=== PATIENT | male | born 1940 | race Caucasian/White ===

== ENCOUNTER 2016-08-22 11:22 | Inpatient (IN) | payer MEDICARE, OTHER ==
[~2016-08-22] VITALS: Ht 182.9 cm; Wt 105.0 kg
--- NOTE | ~2016-08-22 | HEMODYNAMI ---
PATIENT:FARZANA DAVIS MEDICAL RECORD: [id number] : 36 LOCATION[facility] [id number] ADMISSION DATE: 08/23/16 Generatedon:08/24/20169:03 Patient name: FARZANA DAVIS Patient #: [id number] : 1940 Date of study: 08/24/2016 Page: Of Hemodynamic Procedure Report Patient Data Patient Demographics Procedure consent was obtained First Name: FARZANA Gender: Male Last Name: RYAN : 1940 Middle Initial: OTONIEL Age: 76 year(s) Patient #: [id number] Race: SSN: [id number] Additional ID: [id number] Contact details [address]: [address] [place] [address] State: [place] City: [place] Zip code: [address] Past Medical History Allergies: No known allergies Admission Admission Data Admission Date: 08/23/2016 Admission Time: 17:02 Arrival Date: 08/23/2016 Arrival Time: 17:02 Admit Source: Emergency Insurance Payor: Medicare, [facility] Room #: D.2122 Height (in.): 71.65 BSA: 2.46 (m2) Height (cm.): 182 BMI: 38.64 (kg/m2) Weight (lbs.): 282.19 Weight (kg.): 128 Medications upon Admission Medications Dosage Times Administered Last Remarks per Delivery Day Date and Time Clopidogrel Yes 08/22/2016 0:00 Lab Results Lab Result Date: 08/24/2016 Lab Result Time: 0:00 Biochemistry Name Units Result Min Max BUN mg/dl 26 --(----)-* 7 18 Creatinine mg/dl 1.6 --(----)-* 0.6 1.3 CBC Name Units Result Min Max Hemoglobin g/dl 13.1 -*(----)-- 13.5 17.5 Procedure Procedure Types Cath Procedure Diagnostic Procedure FFR/IVUS Intra-Coronary IVUS Initial PCI Procedure Coronary Stent Initial Miscellaneous Procedures Moderate Sedation up to 15 minutes Procedure Description Procedure Date Procedure Date: 08/24/2016 Procedure Start Time: 8:49 Procedure End Time: 9:00 Procedure Staff Name Function New Faustin MD Performing Physician Khanh Cleveland RT Scrub Cooper Lieberman RN Nurse Li Dave RT Monitor Procedure Data Cath Procedure Fluoroscopy Diagnostic fluoroscopy Total fluoroscopy Time: 2.5 time: 2.5 min min Diagnostic fluoroscopy Total fluoroscopy dose: 184 dose: 184 mGy mGy Contrast Material Contrast Material Type Amount (ml) Isovue 370 42 Entry Location Entry Primary Successful Side Size Upsize Upsize Entry Closure Succes sful Closure Location (Fr) 1 (Fr) 2 (Fr) Remarks Device Remarks Femoral Right 6 Fr Vascade artery Short Closure System Estimated blood loss: 5 ml Procedure Complications No complications Procedure Medications Medication Administration Route Dosage Oxygen NC 2 l/min Lidocaine 2% added to field 20 Heparin Flush Bag added to field 2 bags (1000units/500ml NS) 0.9% NaCl I.V. 100 ml/hr Versed I.V. 1 mg Fentanyl I.V. 50 mcg Heparin Bolus I.V. 4000 units Versed I.V. 1 mg Fentanyl I.V. 50 mcg Hemodynamics Rest BSA: 2.46 (m2) HGB: 13.1 (g/dl) O2 Consumption: Estimated: 281.76 (ml/min) O2 Co nsumption indexed: Estimated:114.54 (ml/min/m) Heart Rate: 70 (bpm) Snapshots Pre Cath Intra NCS Post Cath Vital Signs Time Heart Resp SPO2 etCO2 [id number] NIBP (mmHg) Rhythm Pain Sedation Rate (ipm) (%) (mmHg) (mmHg) Status Level (bpm) 8:31:14 64 18 99 0 0 155/75(122) NSR 0 (11) 10(A) , No pain 8:35:36 64 21 100 0 0 148/75(127) NSR 0 (11) 10(A) , No pain 8:39:54 62 16 98 0 0 135/69(106) NSR 0 (11) 10(A) , No pain 8:44:14 61 26 98 0 0 132/65(103) NSR 0 (11) 10(A) , No pain 8:48:34 62 21 99 0 0 132/63(97) NSR 0 (11) 9(A) , No pain 8:52:52 62 21 98 0 0 122/56(100) NSR 0 (11) 9(A) , No pain 8:57:10 65 16 98 0 0 130/65(88) NSR 0 (11) 10(A) , No pain Medications Time Medication Route Dose Verified Delivered Reason Notes Effectiveness by by 8:31:47 Oxygen NC 2 New [place] used for l/min Roxie Lieberman RN procedure 8:31:55 Lidocaine 2% added 20ml New New for local to vial Roxie Faustin MD anesthetic field 8:32:03 Heparin Flush added 2 New New used for Bag to bags Roxie Faustin MD procedure (1000units/500ml field NS) 8:32:12 0.9% NaCl I.V. 100 New [place] Per physician ml/hr Roxie Lieberman RN 8:47:40 Versed I.V. 1 mg New [place] for sedation Roxie Lieberman RN 8:47:47 Fentanyl I.V. 50 New [place] for sedation mcg Roxie Lieberman RN 8:51:26 Heparin Bolus I.V. 4000 New [place] for verifie d units Roxie Lieberman RN anticoagulation with dr faustin 8:53:52 Versed I.V. 1 mg New [place] for sedation Roxie Lieberman RN 8:53:58 Fentanyl I.V. 50 [place] for sedation mcg Roxie Lieberman RN Procedure Log Time Note 8:10:10 Cooper Lieberman RN sent for patient. Start room use. 8:19:45 Patient Height : 71.65 inches 8:19:45 Patient Weight : 282.19 lbs 8:19:49 Diagnostic Cath Status : Elective 8:20:17 Time tracking: Regular hours 8:20:32 Plan of Care:Hemodynamics will remain stable., Cardiac rhythm will remain stable., Comfort level will be maintained., Respiratory function will remain adequate., Patient/ family verbilizes understanding of procedure., Procedure tolerated without complication., Recovers from procedure without complications.. 8:24:35 Patient received from Med II to [facility] 1 Alert and oriented. Tansferred to table in Supine position. 8:24:36 Warm blankets applied, and corry hugger turned on for patient comfort. 8:24:38 Correct patient and procedure confirmed by team. 8:24:47 Signed procedure consent form obtained from patient. 8:24:49 ECG and BP/O2 sat monitors applied to patient. 8:26:59 H&P Date Dictated: 08/23/2016 Within 30 days and on chart.. 8:27:02 Pre-procedure instructions explained to patient. 8:27:04 Family in waiting room. 8:27:06 Patient NPO since Midnight. 8:27:23 Patient allergic to No known allergies 8:27:29 Is patient on blood thinner?Yes 8:27:33 ACC The patient was administered the following blood thiners within the last 24 hours: ACCPlavix 8:27:35 Patient diabetic? Yes. 8:27:37 If diabetic: On Metformin? No 8:27:40 Snore? Yes 8:27:45 Sleep apnea? Yes 8:27:46 Deviated septum? No 8:27:47 Opens mouth fully? Yes 8:27:48 Sticks out tongue? Yes 8:27:59 Patient pain scale 0/10 ?. 8:28:11 IV patent on arrival in right forearm with 0.9% NaCl at [facility]. 8:28:36 Lab results completed and on chart. 8:28:44 Right groin area was prepped with chlora-prep and draped in sterile fashion 8:28:48 Alarms reviewed by R. N. 8:28:49 Sharps counted by scrub and verified by R.N. 8:29:58 Vital chart was started 8:30:28 Baseline sample Acquired. 8:30:34 Rhythm: paced 8:30:36 Full Disclosure recording started 8:31:47 Oxygen 2 l/min NC was given by Cooper Lieberman RN; used for procedure; 8:31:55 Lidocaine 2% 20ml vial added to field was given by New Faustin MD; for local anesthetic; 8:32:03 Heparin Flush Bag (1000units/500ml NS) 2 bags added to field was given by New Faustin MD; used for procedure; 8:32:12 0.9% NaCl 100 ml/hr I.V. was given by Cooper Lieberman RN; Per physician; 8:34:32 Arrival Date: 08/23/2016 5:02:00 PM 8:45:45 Lab Result : Creatinine 1.6 mg/dl 8:45:45 Lab Result : BUN 26 mg/dl 8:45:45 Lab Result : Hemoglobin 13.1 g/dl 8:45:50 Physician paged 8:46:03 Zero performed for pressure channel P1 8:46:41 Physician arrived 8:46:41 --------ALL STOP TIME OUT------ 8:46:41 Final Timeout: patient, procedure, and site verified with staff and physician. All members of the team are in agreement. 8:46:43 Right groin site verified by team. 8:46:46 Physical assessment completed. ASA score P 2 - A patient with mild systemic disease as per New Faustin MD. 8:46:49 Sedation plan: IV Moderate Sedation Versed, Fentanyl 8:47:05 Use device set Femoral PCI 8:47:06 Acist Syringe opened to sterile field. 8:47:07 Acist Hand Control opened to sterile field. 8:47:08 Bag Decanter opened to sterile field. 8:47:09 Cardinal Cath Pack opened to sterile field. 8:47:10 Terumo 6Fr Moody Sheath opened to sterile field. 8:47:11 St Flash 260cm J .035 wire opened to sterile field. 8:47:12 Merit BasixCompak Inflation Kit opened to sterile field. 8:47:12 Acist Manifold opened to sterile field. 8:47:13 Tegaderm 4 x 4 opened to sterile field. 8:47:28 [place] Stanford Eagleye IVUS Catheter opened to sterile field. 8:47:28 Russell Whisper J 300cm 0.014 guide wire opened to sterile field. 8:47:34 Medtronic Launcher 6Fr AR 2.0 guide catheter opened to sterile field. 8:47:40 Versed 1 mg I.V. was given by Cooper Lieberman RN; for sedation; 8:47:47 Fentanyl 50 mcg I.V. was given by Cooper Lieberman RN; for sedation; 8:49:37 Procedure started. 8:49:44 Local anesthetic to right femoral artery with Lidocaine 2% by New Faustin MD.INITIAL ACCESS ONLY 8:49:53 A 6 Fr Short sheath was inserted into the Right Femoral artery 8:50:00 6 Fr ar 2 guide catheter was inserted over the wire 8:50:08 whisper wire advanced. 8:50:11 Wire advanced across lesion. 8:51:26 Heparin Bolus 4000 units I.V. was given by Cooper Lieberman RN; for anticoagulation; verified with dr faustin 8:53:52 Versed 1 mg I.V. was given by Cooper Lieberman RN; for sedation; 8:53:58 Fentanyl 50 mcg I.V. was given by Cooper Lieberman RN; for sedation; 8:54:11 IVUS catheter advanced over wire. 8:54:12 IVUS pass to RCA lesion performed. 8:54:13 IVUS catheter removed over wire. 8:55:26 Inflation Number: 1 A Medtronic Resolute 3.5 X 30 stent was prepped and advanced across the Mid RCA. The stent was deployed at 17 JOHN for 0:10 (min:sec). 8:55:58 Stent catheter was removed intact over wire. 8:56:00 Wire removed. 8:56:04 Guide catheter removed. 8:56:23 Vascade 6/7 Fr Closure Device opened to sterile field. 8:57:43 Sheath removed intact; hemostasis achieved with Vascade Closure System to the Right Femoral artery. 8:57:45 Procedure ended.(Physican Out) 8:59:06 Fluoroscopy time 02.50 minutes. 8:59:10 Flurop Dose total: 184 8:59:10 Fluoroscopy dose: 184 mGy 8:59:13 Contrast amount:Isovue 370 42ml. 8:59:15 Sharps counted by scrub and verified by R.N. 8:59:16 Insertion/operative site no bleeding no hematoma. 8:59:19 Post-op/insertion site Right Femoral artery dressed using a 4 x 4 and Tegaderm. 8:59:21 Post right femoral artery:stable 8:59:23 Post Procedure Pulses reassessed and unchanged 8:59:26 Post procedure rhythm: unchanged. 8:59:29 Estimated blood loss: 5 ml 8:59:30 Post procedure instruction explained to patient.Patient verbalizes understanding. 8:59:31 Patient needs reinforcement of post procedure teaching. 8:59:44 Procedure type changed to Cath procedure, Diagnostic procedure, FFR/IVUS, Intra-Coronary IVUS Initial, PCI procedure, Coronary Stent Initial, Miscellaneous Procedures, Moderate Sedation up to 15 minutes 8:59:45 Procedure and supply charges have been captured, reviewed, submitted and are correct. 8:59:49 Procedure Complication : No complications 8:59:51 Vital chart was stopped 8:59:52 See physician's report for complete and final results. 8:59:54 Report given to [facility]. 9:00:18 Patient transfered to [facility] with Stretcher. 9:00:20 Procedure ended. 9:00:20 Full Disclosure recording stopped 9:00:29 ACC-PCI Only Patient was given prescriptions, or instructed by New Faustin MD to start/continue the following medications upon discharge: Plavix 9:00:30 End room use (Document Last) Intervention Summary Intervention Notes Time ActionType Lesion and Equipment Action# Pressure Duration Attributes Used 8:55:26 Place stent Mid RCA Medtronic 1 17 00:10 Resolute 3.5 X 30 stent Device Usage Item Name Manufacture Quantity Catalog Hospital Part Current Minima l Lot# / Number Charge Number Stock Stock Serial# Code Acist Acist 1 89830 118903 249406 190530 20 Syringe Medical Systems Inc Acist Hand Acist 1 71624 454090 546504 757145 5 Control Medical Systems Inc Bag Microtek 1 2002S 396974 04977 888924 5 Jaco Solarsi [employer] Cardinal Cardinal [address] 589601 83985 543899 5 TimePad Terumo 6Fr Terumo 1 [id number] 725777 272688 322003 [address] Flash 1 [id number] 777294 074836 015240 30 260cm J .035 wire Merit Merit 1 [id number] 131315 555541 293445 15 BasixFarmolprk Medical Inflation Kit Acist Acist 1 03697 935785 225103 234070 5 [employer]ent [employer] Inc Tegaderm 4 3M 1 1626W 236092 034854 301259 5 x 4 [place] 1 [id number] 715967 301756 810282 8 Stanford Eagleye IVUS Catheter Russell Russell 1 [id number] 917496 167417 316997 5 Whisper J Vascular 300cm 0.014 guide wire Medtronic Medtronic 1 [id number] 931843 31718 023121 1 Launcher 6Fr AR 2.0 guide catheter Medtronic Medtronic 1 [id number] 787724 310746 6 [id number] Resolute 3.5 X 30 stentt Vascade 12/21 Cardiva 1 [id number] 961005 150614 305265 5 Fr Closure Medical, Device Inc. Signature Audit [place] Stage Time Signature Unsigned Intra-Procedure 08/24/2016 Li Dave 9:03:49 AM RT(R) Signatures Monitor : Li Dave RT Signature : Date : Time : [id number] [place] [address]
--- NOTE | ~2016-08-22 | HEMODYNAMI ---
PATIENT:FARZANA DAVIS MEDICAL RECORD: [id number] : 36 [id number] ADMISSION DATE: 08/23/16 Generatedon:08/25/201611:04 Patient name: FARZANA DAVIS Patient #: [id number] : 1940 Date of study: 08/23/2016 Page: Of Hemodynamic Procedure Report Patient Data Patient Demographics Procedure consent was obtained First Name: FARZANA Gender: Male Last Name: RYAN : 1940 Middle Initial: OTONIEL Age: 76 year(s) Patient #: [id number] Race: SSN: [id number] Additional ID: [id number] Contact details [address]: [address] [place] [address] State: [place] City: [place] Zip code: [address] Past Medical History Allergies: No known allergies Admission Admission Data Admission Date: 08/23/2016 Admission Time: 9:43 Arrival Date: 08/23/2016 Arrival Time: 17:02 Admit Source: Emergency Insurance Payor: Medicare, [facility] Room #: D.2122 Height (in.): 71.65 BSA: 2.46 (m2) Height (cm.): 182 BMI: 38.64 (kg/m2) Weight (lbs.): 282.19 Weight (kg.): 128 Medications upon Admission Medications Dosage Times Administered Last Remarks per Delivery Day Date and Time Clopidogrel Yes 08/22/2016 0:00 Lab Results Lab Result Date: 08/24/2016 Lab Result Time: 0:00 Biochemistry Name Units Result Min Max BUN mg/dl 26 --(----)-* 7 18 Creatinine mg/dl 1.6 --(----)-* 0.6 1.3 CBC Name Units Result Min Max Hemoglobin g/dl 13.1 -*(----)-- 13.5 17.5 Procedure Procedure Types Cath Procedure Diagnostic Procedure LHC LHC w/Coronaries PCI Procedure Coronary Stent Initial Miscellaneous Procedures Moderate Sedation up to 30 minutes Procedure Description Procedure Date Procedure Date: 08/23/2016 Procedure Start Time: 8:05 Procedure End Time: 8:28 Procedure Staff Name Function Jessica Red RT Monitor Vince Jewell RT Culturist Zane Lepe RN Culturist Cooper Lieberman RN Nurse New Faustin MD Performing Physician Khanh Cleveland RT Scrub Procedure Data Cath Procedure Fluoroscopy Diagnostic fluoroscopy Total fluoroscopy Time: 6 time: 6 min min Diagnostic fluoroscopy Total fluoroscopy dose: dose: 1084 mGy 1084 mGy Contrast Material Contrast Material Type Amount (ml) Isovue 300 111 Entry Location Entry Primary Successful Side Size Upsize Upsize Entry Closure Bellamy ccessful Closure Location (Fr) 1 (Fr) 2 (Fr) Remarks Device Remarks Radial Right 6 Fr Mechanical artery Short Compression Estimated blood loss: 10 ml Diagnostic catheters Device Type Used For End Catheter Placement Cordis Infinity 5Fr AR 2 Right Coronary MOD catheter Angiography Terumo 5Fr Arpan 110cm LV Angiography catheter Procedure Complications No complications Procedure Medications Medication Administration Route Dosage Oxygen NC 2 l/min Lidocaine 2% added to field 20 Heparin Flush Bag added to field 2 bags (1000units/500ml NS) 0.9% NaCl I.V. 100 ml/hr Versed I.V. 1 mg Fentanyl I.V. 50 mcg Radial Cocktail I.A. 1 syringe (Verapomil 2mg/Nitro 400mcg/Heparin 1500units) Heparin Bolus I.V. 4000 units Versed I.V. 1 mg Fentanyl I.V. 50 mcg Plavix P.O. 75 mg Hemodynamics Rest BSA: 2.46 (m2) HGB: 13.1 (g/dl) O2 Consumption: Estimated: 272.71 (ml/min) O2 Co nsumption indexed: Estimated:110.86 (ml/min/m) Heart Rate: 60 (bpm) Snapshots Pre Cath Intra NCS Post Cath Vital Signs Time Heart Resp SPO2 NIBP Rhythm Pain Sedation Rate (ipm) (%) (mmHg) Status Level (bpm) 7:59:09 63 16 95 123/60(92) NSR 0 (11) 10(A) , No pain 8:03:30 63 16 97 120/56(91) NSR 0 (11) 10(A) , No pain 8:07:50 64 15 96 118/54(92) NSR 0 (11) 9(A) , No pain 8:12:08 65 15 96 97/52(80) NSR 0 (11) 9(A) , No pain 8:16:18 66 16 95 115/56(85) NSR 0 (11) 9(A) , No pain 8:20:36 68 18 94 101/54(75) NSR 0 (11) 9(A) , No pain 8:24:44 70 17 94 102/56(82) NSR 0 (11) 10(A) , No pain Medications Time Medication Route Dose Verified Delivered Reason Notes Effectiveness by by 7:55:49 Oxygen NC 2 l/min New Buffie used for Roxie Lieberman RN procedure 7:55:59 Lidocaine 2% added 20ml New New for local to vial Roxie Faustin MD anesthetic field 7:56:05 Heparin Flush added 2 bags New Wolff used for Bag to Roxie Faustin MD procedure (1000units/500ml field NS) 7:56:20 0.9% NaCl I.V. 100 Newveto [place] Per ml/hr Roxie Lieberman RN physician 8:06:28 Versed I.V. 1 mg New [place] for sedation Roxie Lieberman RN 8:06:34 Fentanyl I.V. 50 mcg New [place] for sedation Roxie Lieberman RN 8:07:45 Radial Cocktail I.A. 1 Newveto Wolff for (Verapomil syringe Roxie Faustin MD vasodilation 2mg/Nitro 400mcg/Hepari 8:14:36 Heparin Bolus I.V. 4000 New [place] used for verified units Roxie Lieberman RN procedure with dr faustin 8:16:44 Versed I.V. 1 mg New [place] for sedation Roxie Lieberman RN 8:16:48 Fentanyl I.V. 50 mcg New [place] for sedation Roxie Lieberman RN 8:28:28 Plavix P.O. 75 mg New [place]ie for Roxie Lieberman RN antiplatelet therapy Procedure Log Time Note 7:17:23 Time tracking: Regular hours 7:17:27 Plan of Care:Hemodynamics will remain stable., Cardiac rhythm will remain stable., Comfort level will be maintained., Respiratory function will remain adequate., Patient/ family verbilizes understanding of procedure., Procedure tolerated without complication., Recovers from procedure without complications.. 7:30:21 Zane Lepe RN sent for patient. Start room use. 7:36:37 Lab Result : Troponin l 0.017 ng/ml 7:36:37 Lab Result : Hemoglobin 13.1 g/dl 7:36:37 Lab Result : Creatinine 1.6 mg/dl 7:36:37 Lab Result : CK-MB 1.8 ng/ml 7:37:36 Patient Weight : 282.19 lbs 7:37:40 Patient Height : 71.65 inches 7:37:47 Admit Source: Emergency department 7:37:53 Insurance Payor : Medicare, [facility] 7:38:05 Patient allergic to No known allergies 7:38:29 Patient diabetic? Yes. 7:38:31 If diabetic: On Metformin? No 7:38:35 ACC The patient was administered the following blood thiners within the last 24 hours: ACCPlavix 7:38:42 H&P Date Dictated: 08/22/2016 Within 30 days and on chart.. 7:43:51 Patient received from Med II to CCL 1 Alert and oriented. Tansferred to table in Supine position. 7:55:49 Oxygen 2 l/min NC was given by Cooper Lieberman RN; used for procedure; 7:55:59 Lidocaine 2% 20ml vial added to field was given by New Faustin MD; for local anesthetic; 7:56:05 Heparin Flush Bag (1000units/500ml NS) 2 bags added to field was given by New Faustin MD; used for procedure; 7:56:20 0.9% NaCl 100 ml/hr I.V. was given by Cooper Lieberman RN; Per physician; 7:57:47 Warm blankets applied, and corry hugger turned on for patient comfort. 7:57:48 Correct patient and procedure confirmed by team. 7:57:49 Signed procedure consent form obtained from patient. 7:57:50 ECG and BP/O2 sat monitors applied to patient. 7:57:58 Full Disclosure recording started 7:58:02 Vital chart was started 7:58:10 Rhythm: paced 7:58:14 Pre-op teaching completed and patient verbalized understanding. 7:58:14 Pre-procedure instructions explained to patient. 7:58:15 Family in waiting room. 7:58:18 Patient NPO since Midnight. 7:58:21 Is the patient allergic to Iodine/contrast media? No. 7:58:24 Is patient on blood thinner?Yes 7:58:30 Previous problem with sedation/anesthesia? No ? 7:58:31 Snore? Yes 7:58:33 Sleep apnea? Yes 7:58:34 Deviated septum? No 7:58:42 Opens mouth fully? Yes 7:58:43 Sticks out tongue? Yes 7:58:46 Airway obstruction? No ? 7:58:47 Dentures? No ? 7:58:50 Pre procedure: right dorsailis pedis pulse 2+ Normal; easily identifiable; not easily obliterated 7:58:53 Modified Dani's test Ulnar < 7 seconds 7:58:54 Patient pain scale 0/10 ?. 7:59:03 IV patent on arrival in right forearm with 0.9% NaCl at KVO. 7:59:07 Lab results completed and on chart. 7:59:10 Right Radial & Right Groin area was prepped with chlora-prep and draped in sterile fashion 7:59:11 Alarms reviewed by R. N. 7:59:12 Sharps counted by scrub and verified by R.N. 7:59:31 Acist Syringe opened to sterile field. 7:59:31 Use device set Radial Dx 7:59:32 Bag Decanter opened to sterile field. 7:59:32 Cardinal Cath Pack opened to sterile field. 7:59:33 St Flash 260cm J .035 wire opened to sterile field. 7:59:33 Terumo 6Fr Slender Glidesheath opened to sterile field. 7:59:35 Acist Hand Control opened to sterile field. 7:59:36 Tegaderm 4 x 4 opened to sterile field. 7:59:36 Acist Manifold opened to sterile field. 8:00:35 Physician paged 8:04:02 Final Timeout: patient, procedure, and site verified with staff and physician. All members of the team are in agreement. 8:04:06 Right Radial site verified by team. 8:04:10 Physical assessment completed. ASA score P 2 - A patient with mild systemic disease as per New Faustin MD. 8:04:28 Sedation plan: IV Moderate Sedation Versed, Fentanyl 8:04:42 Baseline sample Acquired. 8:04:47 Procedure started. 8:04:55 Zero performed for pressure channel P1 8:05:40 Local anesthetic to right radial artery with Lidocaine 2% by New Faustin MD.INITIAL ACCESS ONLY 8:06:28 Versed 1 mg I.V. was given by Cooper Lieberman RN; for sedation; 8:06:34 Fentanyl 50 mcg I.V. was given by Cooper Lieberman RN; for sedation; 8:07:45 Radial Cocktail (Verapomil 2mg/Nitro 400mcg/Heparin 1500units) 1 syringe I.A. was given by New Faustin MD; for vasodilation; 8:07:57 A 6 Fr Short sheath was inserted into the Right Radial artery 8:08:47 A [place] 5Fr Arpan 110cm catheter was advanced over the wire and used for LV Angiography. 8:08:54 LV gram done using GOTTI 8:08:58 Injector settings: Ml/sec: 5, Volume: 15, 8:09:11 EF : 45 % 8:10:05 Catheter removed. 8:10:36 A [place] Bluesity 5Fr AR 2 MOD catheter was advanced over the wire and used for Right Coronary Angiography. 8:10:50 Medtronic Launcher 6Fr EBU 3.5 guide catheter opened to sterile field. 8:11:49 Catheter removed. 8:11:58 6 Fr EBU 3.5 guide catheter was inserted over the wire 8:12:03 LCA angiography performed. 8:14:32 Russell Whisper J 300cm 0.014 guide wire opened to sterile field. 8:14:33 Intelligent Data Sensor DevicesixCompak Inflation Kit opened to sterile field. 8:14:36 Heparin Bolus 4000 units I.V. was given by Cooper Lieberman RN; used for procedure; verified with dr faustin 8:16:44 Versed 1 mg I.V. was given by Cooper Lieberman RN; for sedation; 8:16:48 Fentanyl 50 mcg I.V. was given by Cooper Lieberman RN; for sedation; 8:17:26 Whisper wire advanced. 8:17:48 Inflation Number: 1 A Medtronic Resolute 2.5 X 26 stent was prepped and advanced across the Mid LAD. The stent was deployed at 13 JOHN for 0:09 (min:sec). 8:18:20 Inflation number: 2 The stent balloon was then re-inflated across the Mid LAD to 15 JOHN for 0:11 (min:sec). 8:19:02 Inflation number: 3 The stent balloon was then re-inflated across the Mid LAD to 11 JOHN for 0:11 (min:sec). 8:19:22 Stent catheter was removed intact over wire. 8:21:09 Inflation Number: 4 A Medtronic Resolute 2.5 X 22 stent was prepped and advanced across the Mid LAD. The stent was deployed at 13 JOHN for 0:09 (min:sec). 8:21:55 Inflation number: 5 The stent balloon was then re-inflated across the Mid LAD to 7 JOHN for 0:11 (min:sec). 8:22:19 Wire removed. 8:22:19 Stent catheter was removed intact over wire. 8:22:20 Guide catheter removed. 8:22:30 Sheath removed intact; hemostasis achieved with Mechanical Compression to the Right Radial artery. 8:22:33 Procedure ended.(Physican Out) 8:22:43 Fluoroscopy time 06.00 minutes. 8:22:46 Fluoroscopy dose: 1084 mGy 8:22:46 Flurop Dose total: 1084 8:22:51 Contrast amount:Isovue 300 111ml. 8:22:53 Sharps counted by scrub and verified by R.N. 8:23:07 Insertion/operative site no bleeding no hematoma. 8:23:07 TR band inflated with 12cc of air. 8:23:18 Post right radial artery:stable, clean and dry 8:23:20 Post Procedure Pulses reassessed and unchanged 8:23:25 Post-procedure physical assessment completed. ASA score P 2 - A patient with mild systemic disease as per New Faustin MD. 8:23:27 Post procedure rhythm: unchanged. 8:23:30 Estimated blood loss: 10 ml 8:23:32 Patient needs reinforcement of post procedure teaching. 8:23:32 Post procedure instruction explained to patient.Patient verbalizes understanding. 8:23:39 Procedure type changed to Cath procedure, Diagnostic procedure, LHC, LHC w/Coronaries, PCI procedure, Coronary Stent Initial, Miscellaneous Procedures, Moderate Sedation up to 30 minutes 8:23:44 Procedure Complication : No complications 8:23:46 See physician's report for complete and final results. 8:23:55 Terumo TR Band Standard opened to sterile field. 8:25:54 Procedure and supply charges have been captured, reviewed, submitted and are correct. 8:27:49 Vital chart was stopped 8:27:51 Report given to PCU. 8:28:08 Patient transfered to PCU with Bed. 8:28:13 Full Disclosure recording stopped 8:28:13 Procedure ended. 8:28:16 End room use (Document Last) 8:28:28 Plavix 75 mg P.O. was given by Cooper Lieberman RN; for antiplatelet therapy; Intervention Summary Intervention Notes Time ActionType Lesion and Equipment Action# Pressure Duration Attributes Used 8:17:48 Place stent Mid LAD Medtronic 1 13 00:09 Resolute 2.5 X 26 stent 8:18:20 Reinflate Mid LAD Medtronic 2 15 00:11 stent Resolute balloon 2.5 X 26 stent 8:19:02 Reinflate Mid LAD Medtronic 3 11 00:12 stent Resolute balloon 2.5 X 26 stent 8:21:09 Place stent Mid LAD Medtronic 4 13 00:09 Resolute 2.5 X 22 stent 8:21:55 Reinflate Mid LAD Medtronic 5 7 00:11 stent Resolute balloon 2.5 X 22 stent Device Usage Item Name Manufacture Quantity Catalog Hospital Part Current Minimal Lot# / Number Charge Number Stock Stock Serial# Code Acist Acist 1 [id number] [id number] 575063 033559 20 Syringe Medical Systems Inc Cardinal Cardinal 1 [id number] 954856 07842 446172 5 Cath Pack Music Nation Bag Microtek 1 2001S 577034 98935 002625 5 SmartWatch [employer] Inc. Terumo 6Fr Terumo 1 [id number] 019923 555549 842165 [address] Flash St Flash 1 214077 002325 821867 714204 30 260cm J .035 wire Acist Hand Acist 1 67334 350211 149146 152915 5 Control Medical Systems Inc Acist Acist 1 19407 951788 288243 221265 5 shopp Medical Systems Inc Tegaderm 4 3M 1 1626W 365189 085998 660975 5 x 4 Cordis Cardinal 1 [id number] 747383 305025 794213 20 Infinity Health 5Fr AR 2 MOD catheter Medtronic Medtronic 1 [id number] 985901 42567 745657 3 Launcher 6Fr EBU 3.5 guide catheter Terumo 5Fr Terumo 1 09-0631 088892 494854 632381 5 Arpan 110cm catheter Russell Russell 1 [id number] 699410 484884 635430 5 Whisper J Vascular 300cm 0.014 guide wire Merit Merit 1 [id number] 232510 413359 366841 15 KeyweeixProxamautCAPE Technologies Medical Inflation Kit Medtronic Medtronic 1 [id number] 637820 810256 5 [id number] Resolute 2.5 X 26 stent Medtronic Medtronic 1 [id number] 561424 484937 8 [id number] Resolute 2.5 X 22 stent Terumo TR Terumo 1 [id number] 026009 106000 068311 40 Band Standard Signature Audit [place] Stage Time Signature Unsigned Intra-Procedure 08/23/2016 Jessica Moon 8:28:53 AM Counts RT(R) RT(R) 08/25/2016 11:03:39 AM Intra-Procedure 08/25/2016 Jessica 11:03:58 AM Counts RT(R) Signatures Monitor : Jessica Signature : Counts RT Date : Time : [place] [id number] [place] [address]
[~2016-08-22 11:22] MED LIST: ADOXA100 MG PO; BAYER CHEWABLE81 MG PO; BYETTA10 MCG/0.0 SQ; COREG6.25 MG PO; FISH OIL 1,0001 CA1 PO; FLUTICASONE PRO16 GM NS; IMDUR60 MG PO; LANTUS SOL100 UNIT/1 SQ; LASIX20 MG PO; MIRALAX17 GM PO; NITROSTAT0.4 MG SL; NORITATE60 GM TP; NOVOLOG100 U/M1 SC; PLAVIX75 MG PO; PRILOSEC20 MG PO; PROSCAR5 MG PO; SLOW-MAG 64 MG64 MG PO; VITAMIN D31000 UNIT PO; ZOCOR5 MG PO; ZYLOPRIM300 MG PO
[2016-08-22 12:15] LABS: BASOPHILS 0.1 % (0.0-2.0); EOSINOPHILS 4.1 % (0-7); HEMATOCRIT 38.3 % (42.0-54.0); HEMOGLOBIN 13.1 g/dL (13.5-17.5); IMMATURE GRANULOCYTES 0.4 % (0-5); LYMPHOCYTES 23.9 % (15-50); MCH 32.1 pg (26.0-34.0); MCHC 34.2 g/dL (31.0-37.0); MCV 93.9 fL (80.0-100.0); MEAN PLATELET VOLUME 10.4 fL (7.4-10.4); MONOCYTES 8.5 % (2-11); RBC 4.08 10x6/uL (4.20-6.10); RDW 13.9 % (11.5-14.5); WBC 7.3 10x3/uL (4.8-10.8)
[2016-08-22 12:32] LABS: PLATELET COUNT 109 10x3/uL (130-400)
[2016-08-22 12:47] LABS: ALBUMIN 3.6 g/dL (3.4-5.0); ALKALINE PHOSPHATASE 87 U/L (46-116); ALT (SGPT) 52 U/L (10-68); CALC OSMOLALITY 288 mosm/kg (275-300); CARBON DIOXIDE 28.5 mmol/L (21.0-32.0); CHLORIDE - SERUM 104 mmol/L (98-107); CREATININE - SERUM 1.6 mg/dL (0.6-1.3); GLUCOSE 181 mg/dL (74-106); POTASSIUM - SERUM 4.1 mmol/L (3.5-5.1); PROTEIN - SERUM 7.5 g/dL (6.4-8.2); SODIUM 140 mmol/L (136-145); UREA NITROGEN 26 mg/dL (7-18); eGFR NON AFRICAN AMERICAN 45 mL/min (90-120)
[2016-08-22 12:51] LABS: CHOLESTEROL, TOTAL 128 mg/dL (0-200); CKMB 1.8 U/L (0.0-3.6); CREATINE KINASE 200 UL (21-232); HDL CHOLESTEROL 32 mg/dL (32-96); LDL CHOLESTEROL 45 mg/dL (0-100); LDL-HDL RATIO 1.4 ratio (1.5-3.5); TRIGLYCERIDE 255 mg/dL (30-200); TROPONIN-I < 0.017 ng/mL (0.000-0.060)
--- NOTE | 2016-08-22 13:35 | NUR ---
RECIEVED FROM ER. ALERT AND ORIENTED. DENIES ANY PAIN AT PRESENT TIME. SL TO RIGHT FAR. TELEMERTY SHOWS SR. CALL LIGHT IN REACH WITH SR UP. WILL MONITOR
[2016-08-22] MEDS ORDERED: FISH OIL 1,0001 CA1 PO (13:49)
[2016-08-22] MEDS ORDERED: COREG12.5 MG PO (13:51)
[2016-08-22 14:29] VITALS: BP 132/58; BMI 32.1
--- NOTE | 2016-08-22 14:43 | NUR ---
RESTING QUIETLY RESP UNLABORED DENIES ANY NEEDS OR DISCOMFORT NAD NOTED
[2016-08-22 16:00] VITALS: BP 113/56
--- NOTE | 2016-08-22 17:08 | NUR ---
LYING QUIETLY DENIES ANY NEEDS. CALL LIGHT IN REACH WITH SR UP. TELEMERTY SHOWS SR
--- NOTE | 2016-08-22 19:30 | NUR ---
ASSESSMENT COMPLETE, DENIES NEEDS AT THIS TIME. UP AD MILDRED W/O DIFF. UNDERSTANDING VERBALIZED ABOUT NPO STATUS AFTER MN FOR AM PROCEDURE. TELEMETRY IN PLACE SHOWING HR PACING AT 69. RT FA SL INTACT WITH NO R/S NOTED AT SITE. HOB UP, SR UP X2, C/L IN REACH. CONTINUE TO MONITOR.
[2016-08-22 20:03] VITALS: BP 113/51
[2016-08-23 01:37] VITALS: BP 113/52
[2016-08-23 04:19] VITALS: BP 121/56
--- NOTE | 2016-08-23 07:30 | NUR ---
ASSESSSMENT COMPLETED. TELEMERTY SHOW PACING AT 60. RIGHT FA SL. DENIES ANY NEEDS. PRE OPED FOR WASTE MACHINE OFFBEARER
[2016-08-23 08:06] VITALS: BP 126/60
--- NOTE | 2016-08-23 08:30 | NUR ---
BACK FROM AUTOMOTIVE TECHNOLOGY INSTRUCTOR. TR BAND TO RIGHT WRIST. V/S STABLE. TELEMERTY SHOWS PACED, NO BLEEDING AT CATH SITE. PPP, FINGERS WARM. WILL MONITOR
--- NOTE | 2016-08-23 10:14 | NUR ---
LYING QUIETLY. V/S STABLE. TR BAND INTACT. FINGERS WARM.PULSE PAPABLE. DENIES ANY NEEDS.
[2016-08-23 10:37] VITALS: Ht 182.9 cm; Wt 105.0 kg
--- NOTE | 2016-08-23 11:11 | NUR ---
BACK FROM OFFLINE EDITOR RESTING QUIETLY. MONITOR SHOWS 66 PACED.
[2016-08-23 12:01] VITALS: BP 127/54
--- NOTE | 2016-08-23 12:34 | NUR ---
TR BAND REMOVED. DRSG APPLIED. V/S STABLE. DENIES ANY NEEDS. CALL LIGHT IN REACH WITH SR UP WILL MONITOR
--- NOTE | 2016-08-23 13:10 | NUR ---
RATIONALE FOR SCD'S EXPLAINED. REFUSED SCD'S
[2016-08-23 16:14] VITALS: BP 121/60
--- NOTE | 2016-08-23 18:09 | NUR ---
LYING QUIETLY, DENIES ANY NEEDS. TELEMERTY SHOWS SR. WILL MONITOR
--- NOTE | 2016-08-23 19:30 | NUR ---
AMBULATING IN HALLWAY W/O DIFF, VOICES NO C/O PAIN OR DISCOMFORT AT THIS TIME. RT WRIST CATH SITE CDI. CONTINUE TO MONITOR.
--- NOTE | 2016-08-23 20:00 | NUR ---
BACK IN ROOM SITTING UP IN BEDSIDE CHAIR WATCHING TV. C/L IN REACH. UNDERSTANDING VERBALIZED ABOUT NPO STATUS AFTER MN FOR HEART CATH IN AM. CONTINUE TO MONITOR.
[2016-08-23 20:09] VITALS: BP 123/56
--- NOTE | 2016-08-23 22:29 | NUR ---
LYING ON RT SIDE WITH EYES CLOSED, RESP EVEN AND UNLAB IN BED WITH TELEMETRY IN PLACE SHOWING HR 68 PACED. DENIES NEEDS UPON AROUSAL. HOB UP SR UP X2, C/L IN REACH. CONTINUE TO MONITOR.
[2016-08-24 01:22] VITALS: BP 122/52
[2016-08-24 06:27] VITALS: BP 129/66
[2016-08-24 08:00] VITALS: BP 126/61
[2016-08-24] MEDS ORDERED: LANTUS SOL100 UNIT/1 SC (11:17)
--- NOTE | 2016-08-24 11:22 | NUR ---
Patient Name: FARZANA DAVIS Admission Status: ER Accout number: [id number] Admission Date: 08-23-2016 : 1940 Admission Diagnosis:UNSTABLE ANGINA Attending: JAY Current LOS: 1 Anticipated DC Date: 08-24-2016 Planned Disposition: Home Primary Insurance: MEDICARE A & B Discharge Planning Comments: * Is the patient Alert and Oriented? Yes 0 * How many steps to enter\exit or inside your home? NONE 0 * PCP DR. PRITCHARD IN [place] 0 * Pharmacy [facility] 0 * Preadmission Environment Home with Family 0 * ADLs Independent 0 * Equipment CPAP 0 * Other Equipment [employer] - MEDICAL EQUIPMENT PROVIDER 0 * List name and contact numbers for known caregivers / representatives who currently or will assist patient after discharge: СЕРГЕЙ DAVIS, SPOUSE, 0 * Community resources currently utilized None 0 * Please name any agencies selected above. NONE 0 * Additional services required to return to the preadmission environment? No 0 * Can the patient safely return to the preadmission environment? Yes 0 * Has this patient been hospitalized within the prior 30 days at any hospital? No 0 CM MET WITH PT IN ROOM TO DISCUSS DISCHARGE PLANNING AND NEEDS. PT REPORTS LIVING AT HOME INDEPENDENTLY WITH HIS SPOUSE. PT HAS CPAP, REPORTS HIS MEDICAL EQUIPMENT PROVIDER TO BE [employer]. PT HAS NO OUTSIDE SERVICES ASSISTING IN THE HOME. CM DISCUSSED AVAILABILITY OF HOME HEALTH, REHAB SERVICES AND MEDICAL EQUIPMENT. PT REPORTS THIS TO BE HIS SECOND CATH WITH DR. TATE AND IS COMFORTABLE WITH DISCHARGE HOME, DENIES DISCHARGE NEEDS. PT REPORTS HIS SPOUSE WILL PICK HIM UP FOR DISCHARGE HOME. IMPORTANT MESSAGE FROM MEDICARE PROVIDED AND EXPLAINED. Technical Designer: Chema Fernandez
[2016-08-24] MEDS ORDERED: PLAVIX75 MG PO (11:24)
[2016-08-24 11:42] VITALS: BP 110/62; BP 136/61
--- NOTE | 2016-08-24 12:35 | NUR ---
DRESSING TO RIGHT GROIN CDI. WILL CONTINUE TO MONITOR. IV DC'S WELL TELEMTRY. NO OTHER NEEDS AT THIS TIME.
--- NOTE | 2016-08-25 13:59 | DS ---
PATIENT:FARZANA DAVIS :[birth year] MEDICAL RECORD: [id number] DISCHARGE SUMMARY ADMISSION DATE: 08/23/16 DISCHARGE DATE: 08/24/16 DISCHARGE DIAGNOSES: 1. Angina. 2. Coronary artery disease. 3. Percutaneous transluminal coronary angioplasty stent left anterior descending and right coronary artery this admission. HOSPITAL COURSE: Mr. Davis presents with unstable anginal symptomatology, found to have significant disease of the LAD and RCA, underwent successful PTCA stent of both territories, had an uneventful postop course. He was discharged home to follow up with [facility] in 1 month. TRANSINT:[id number] Voice Confirmation ID: [id number] DOCUMENT ID: [id number] SUSAN TATE MD at 1359 CC: [id number] DICTATION DATE: 08/24/16 0859 MOBILE SERVICE RV TECHNICIAN: 08/24/16 1043 DIS IN 08/24/16 [facility] [address] [place] [address]
--- NOTE | 2016-08-25 13:59 | OP ---
PATIENT NAME: FARZANA DAVIS MEDICAL RECORD: [id number] :36 LOCATION:D.M2 D.2122 ADMISSION DATE:08/23/16 SURGEON: SUSAN TATE MD DATE OF OPERATION: 08/23/2016 PROCEDURES: 1. PTCA stent LAD. 2. Left heart catheterization. 3. Selective coronary angiography. 4. Left ventriculogram. INDICATION: Angina and coronary artery disease. PROCEDURE IN DETAIL: After informed consent was obtained and after a detailed explanation of risks, benefits as well as alternative therapies, the patient elected to proceed with angiogram and angioplasty. The right radial area was prepped and draped in normal sterile fashion. The right radial artery was cannulated via modified Seldinger technique with placement of 6-Cambodian sheath. All catheters exchanged through this sheath. FINDINGS: The left ventriculogram was performed in the standard 30-degree GOTTI view, reveals good cardiac wall motion throughout all segments. Overall ejection fraction 55%. SELECTIVE CORONARY ANGIOGRAPHY: 1. Left main showed no significant angiographic disease. 2. Left anterior descending has a previously placed stent. This is widely patent. However, there is a 70% stenosis in the mid vessel. 3. Left circumflex shows moderate irregularities, but no flow-limiting stenosis. 4. The right coronary has at least 70% stenosis in the mid vessel followed by relatively severe diffuse disease of the PDA. PTCA STENT OF THE LAD: The stent used is a 2.5 x 26 mm Resolute. This caused a interval disection proximally. This was covered with a 2.5 x 22 mm Resolute. Result was 0% residual, no angiographic evidence of dissection or thrombus. OVERALL IMPRESSION: Successful percutaneous transluminal coronary angioplasty stent of the left anterior descending going from 70+ percent initial stenosis to 0% residual. PLAN: PTCA stent of the RCA in the near future. TRANSINT:[id number] Voice Confirmation ID: [id number] DOCUMENT ID: [id number] SUSAN TATE MD at 1359 CC: [id number] DICTATION DATE: 08/23/1631 CARVING MACHINE OPERATOR: 08/23/16 0852 DIS IN 08/24/16 [place] [id number]
--- NOTE | 2016-08-25 13:59 | OP ---
PATIENT NAME: FARZANA DAVIS MEDICAL RECORD: [id number] :[birth year] LOCATION:D.M2 D.2122 ADMISSION DATE:08/23/16 SURGEON: SUSAN TATE MD DATE OF OPERATION: 08/24/2016 PROCEDURES: 1. PTCA stent to RCA. 2. Intravascular ultrasound of the RCA. 3. Selective coronary angiography. INDICATIONS: Angina and coronary artery disease. PROCEDURE IN DETAIL: After informed consent was obtained and after detailed explanation of risks, benefits as well as alternative therapies, the patient elected to proceed with angiogram and angioplasty. The right femoral area was prepped and draped in normal sterile fashion. The right femoral artery was cannulated via modified Seldinger technique with placement of 6-Nepali sheath. All catheters exchanged through this sheath. FINDINGS: The right coronary has greater than 75% stenosis in the mid vessel confirmed by intravascular ultrasound. This was addressed with a 3.5 x 30 mm Resolute stent. Result was 0% residual stenosis. OVERALL IMPRESSION: Successful percutaneous transluminal coronary angioplasty stent of the right coronary artery going from greater than 75% initial stenosis to 0% residual. TRANSINT:[id number] Voice Confirmation ID: [id number] DOCUMENT ID: [id number] SUSAN TATE MD at 1359 CC: [id number] DICTATION DATE: 08/24/16 0901 GRILL PREP COOK: 08/24/16 1020 DIS IN 08/24/16 [place] [id number] [place] [address]
--- NOTE | 2016-08-25 13:59 | HP ---
PATIENT: FARZANA DAVIS MEDICAL RECORD: [id number] ACCOUNT: [id number] LOCATION:D. D.2 : 36 ADMISSION DATE: 08/23/16 HISTORY AND PHYSICAL EXAMINATION DIAGNOSES: 1. Unstable angina. 2. Coronary artery disease. 3. Previous percutaneous transluminal coronary angioplasty stent. 4. Hypertension. 5. Hyperlipidemia. 6. Diabetes. HISTORY OF PRESENT ILLNESS: This is a gentleman with a past history of coronary artery disease, last cardiac intervention in 2014, who presents with increasing episodes of angina over the past few days, just like that of his previous angina. His angina resolved totally after his last PTCA stent, which was in the middle of 2014. PHYSICAL EXAMINATION: GENERAL APPEARANCE: Well-nourished, well-developed, appears stated age. Level of distress, comfortable. PSYCHIATRIC: Mental status, alert, normal affect. Orientation, oriented to time, place and person. EYES: Lids and conjunctiva, noninjected. No discharge, no pallor. ENT: Lips, teeth, gums, normal dentition. Oropharynx, no cyanosis, no pallor. NECK: Carotid arteries, bilateral normal upstroke, no bruits, no thrills. JUGULAR VEINS: No jugular venous pressure or distention. CERVICAL LYMPH NODES: Nontender, nonenlarged. THYROID: Not enlarged. Nontender. No nodules. LUNGS: Respiratory effort, unlabored. CHEST: Normal curvature. No thoracic deformity. No chest wall tenderness. Percussion, resonant. Auscultation, clear. No wheezes, no rales, no rhonchi. CARDIOVASCULAR: Precordial exam, nondisplaced. No heaves or pericardial thrills. Rate and rhythm, regular. Heart sounds, normal S1, normal S2. No S3, no gallop, no rub. Systolic murmur, not heard. Diastolic murmur, not heard. EXTREMITIES: No cyanosis, no edema. Peripheral pulses, full and equal in all extremities, except as noted. No bruits appreciated. ABDOMEN: Soft, nondistended. Normal aorta. No bruit. Nontender. No masses. Liver, nontender, no hepatomegaly. Spleen, nontender, no splenomegaly. MUSCULOSKELETAL: No joint tenderness. No joint swelling. No erythema. NEUROLOGICAL: Normal gait, normal strength, normal tone. SKIN: Warm and dry. REVIEW OF SYSTEMS: The patient reports easy bruising but reports no swollen glands. The patient reports no fever, no night sweats, no significant weight gain, no significant weight loss. No significant exercise tolerance. The patient reports no dry eyes, no irritation, no vision change. Patient reports no difficulty hearing and no ear pain. Patient reports no frequent nose bleeds or nose and sinus problems. Patient reports on arm pain on exertion. No shortness of breath while lying down. No history of heart murmur. Patient reports no cough, no wheezing or coughing up blood. Patient reports no abdominal pain, no vomiting. Normal appetite. No diarrhea and not vomiting blood. No nausea and no constipation. Patient reports no incontinence. No difficulty urinating. No hematuria. No increased frequency. Patient reports HISTORY AND PHYSICAL [id number] FARZANA DAVIS no muscle aches. No weakness, no arthralgias, no back pain. No swelling of the extremities. Patient reports no abnormal mole, no jaundice, no rashes. Reports no loss of consciousness. No weakness and no numbness. No seizures, dizziness, or headaches. The patient reports no depression, no sleep disturbance, feeling safe in a relationship and no alcohol abuse. Patient reports on fatigue. Reports no runny nose or sinus pressure. No itching, no hives, and no frequent sneezing. OVERALL IMPRESSION: Unstable anginal symptomatology. We will proceed with coronary angiography. Further care depends upon findings of the angiography. 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
== END 2016-08-24 13:25 | disposition home or self-care (01) | DRG 247 ==
LOC: OBSVTIME → D.ER 11:22 → D.CATH 12:51 → D.M2 13:10 → OBSVTIME 13:10 → D.M2 13:10 → D.ER 13:10 → D.M2 08-23 09:43 → EDSTATUS 08-23 12:15 → D.M2 08-23 17:02
PROVIDERS: Emergency Medicine; ADMIT Internal Medicine Interventional Cardiology
PROC: 4A023N7 Measurement of Cardiac Sampling and Pressure, Left Heart, Percutaneous Approach (ICD-10-PCS; 2016-08-23)
PROC: B2111ZZ Fluoroscopy of Multiple Coronary Arteries using Low Osmolar Contrast (ICD-10-PCS; 2016-08-23)
PROC: B2151ZZ Fluoroscopy of Left Heart using Low Osmolar Contrast (ICD-10-PCS; 2016-08-23)
PROC: 027035Z Dilation of Coronary Artery, One Artery with Two Drug-eluting Intraluminal Devices, Percutaneous Approach (ICD-10-PCS; principal; 2016-08-23 12:15)
PROC: 027034Z Dilation of Coronary Artery, One Artery with Drug-eluting Intraluminal Device, Percutaneous Approach (ICD-10-PCS; 2016-08-24)
PROC: B240ZZ3 Ultrasonography of Single Coronary Artery, Intravascular (ICD-10-PCS; 2016-08-24)
DX: I25.110 Atherosclerotic heart disease of native coronary artery with unstable angina pectoris (principal); Z95.5 Presence of coronary angioplasty implant and graft; I10 Essential (primary) hypertension; E78.5 Hyperlipidemia, unspecified; E11.9 Type 2 diabetes mellitus without complications